=== PATIENT | female | born 1960 | race Caucasian/White ===

== ENCOUNTER 2021-02-04 14:13 | Emergency (ER) | payer OTHER ==
[~2021-02-04] VITALS: Ht 160 cm; Wt 77.1 kg
[2021-02-04] MEDS ORDERED: HYDROCODON-ACE1 EAC7 PO (17:09)
[2021-02-04 18:21] VITALS: BP 141/78
== END 2021-02-04 18:24 | disposition home or self-care (01) ==
LOC: M.ERS 14:13
DX: S42.402A Unspecified fracture of lower end of left humerus, initial encounter for closed fracture (principal); Z90.49 Acquired absence of other specified parts of digestive tract; Z90.710 Acquired absence of both cervix and uterus; W01.0XXA Fall on same level from slipping, tripping and stumbling without subsequent striking against object, initial encounter; Y93.89 Activity, other specified; Y92.89 Other specified places as the place of occurrence of the external cause; Y99.8 Other external cause status